=== PATIENT | male | born 1995 | race Hispanic/Latino ===

== ENCOUNTER 2017-10-21 16:10 | Inpatient (IN) | payer OTHER ==
[2017-10-21] MEDS ORDERED: ceFAZolin IV 1 gm in Dextrose 1 GM/50 ML BAG IVPB STA (17:25)
[2017-10-21] MEDS ORDERED: ceFAZolin IV 1 gm in Dextrose 1 GM/50 ML BAG IVPB ONE (17:32)
--- NOTE | 2017-10-21 17:58 | ED PDOC ---
HPI: Skin/Bite Injury Time Seen by Provider: 10/21/17 16:40 Chief Complaint (Nursing): Abnormal Skin Integrity Chief Complaint (Provider): Abscess to buttocks History Per: Family (Mother) History/Exam Limitations: no limitations Onset/Duration Of Symptoms: Days (x 2) Current Symptoms Are (Timing): Still Present Additional Complaint(s): Gerardo Quezada is a 22-year-old male with a developmental delay who was sent to the ED by Dr. Eagle for evaluation of an abscess to the buttocks. Mother noticed it yesterday when she was bathing him. Patient offers no further complaints. No fever or chills per mother. PMD: Dr. Matt Eagle MD Past Medical History Reviewed: Historical Data, Nursing Documentation, Vital Signs Vital Signs: Last Vital Signs Temp 97.8 F 10/24/17 13:00 Pulse 82 10/24/17 13:00 Resp 18 10/24/17 13:00 BP 106/63 10/24/17 13:00 Pulse Ox 97 10/24/17 13:00 - Medical History Other PMH: Developmental delay - Family History Family History: States: Unknown Family Hx - Living Arrangements Living Arrangements: With Family - Home Medications Home Medications: Ambulatory Orders Medication Instructions Recorded Amoxicillin/Clavulanate [Augmentin 1 tab PO Q12 #14 tab 10/23/17 875 MG-125 MG] - Allergies Allergies/Adverse Reactions: Allergies Allergy/AdvReac Type Severity Reaction Status Date / Time morphine Allergy ANAPHYLAXIS Verified 10/21/17 16:26 Review of Systems ROS Statement: Except As Marked, All Systems Reviewed And Found Negative Constitutional: Negative for: Fever, Chills Skin: Positive for: Other (Abscess to buttocks) Physical Exam - Reviewed Nursing Documentation Reviewed: Yes Vital Signs Reviewed: Yes - Physical Exam Appears: Positive for: Non-toxic, No Acute Distress Head Exam: Positive for: ATRAUMATIC, NORMAL INSPECTION, NORMOCEPHALIC Skin: Positive for: Warm (w/ a 4 x 2cm pilonidal abscess with surrounding induration), Dry Eye Exam: Positive for: Normal appearance, EOMI, PERRL Neck: Positive for: Normal, Painless ROM Neurologic/Psych: Positive for: Alert, Oriented - Laboratory Results Result Diagrams: 10/23/17 12:37 10/23/17 12:37 - ECG O2 Sat by Pulse Oximetry: 99 (RA) Pulse Ox Interpretation: Normal Medical Decision Making Medical Decision Making: Temp taken in the ED is 103 upon arrival. Time: 17:21 Initial Impression: Pilonidal abscess Initial Plan: * VBG * CMP * CBC w/ differential * PTT * Prothrombin time * Blood culture * Tylenol 650 mg PO * Ancef IV 1 gm Duplex * ED Nitrous Oxide ordered for procedure * Tdap given IM 18:15 Case discussed with residential worker. Labs reviewed, Lactate is 2.3. 19:57 Patient will be admitted inpatient to Telemetry for pilonidal abscess and sepsis , under the service of Dr. Eagle. Scribe Attestation: Documented by Radha Bass, acting as a scribe for Sissy Ames MD Provider Scribe Attestation: All medical record entries made by the Scribe were at my direction and personally dictated by me. I have reviewed the chart and agree that the record accurately reflects my personal performance of the history, physical exam, medical decision making, and the department course for this patient. I have also personally directed, reviewed, and agree with the discharge instructions and disposition. Disposition - Clinical Impression Clinical Impression: Pilonidal abscess, Sepsis - Patient ED Disposition Is Patient to be Admitted: Yes - Disposition Disposition Time: 19:57 Condition: STABLE - Pt Status Changed To: Hospital Disposition Of: Inpatient - Admit Certification Admit to Inpatient:: After my assessment, the patient will require hospitalization for at least two midnights. This is because of the severity of symptoms shown, intensity of services needed, and/or the medical risk in this patient being treated as an outpatient.
--- NOTE | 2017-10-21 18:50 | CP.PCM.CON ---
History of Present Illness - History of Present Illness History of Present Illness: General Surgery: Dr Platt Pt is a 22M with history of mental retardation and [employer] WORK[employer] shunt. Pt is co- dependent upon his family, and though he can answer yes/no to questioning he is not oriented and does not comprehend/process the current situation or his surroundings. Pt sent in by [facility] because he has inflammation/pain along his sacrum x 3 days. Pt has also been having fevers at home. He has never had any abscess or pilonidal cyst before. Mother denies any nausea or vomiting, and claims pt has been having normal bowel movements. Pt's mental status renders him uncooperative. He barely allowed me to examine the wound, which is now draining purulent foul smelling drainage. Pt was verbally very distressed after minimal examination, and became physically combative when a more thorough examination was attempted. Family attempted to assist me with minimal restraint, and more fluid was expressed, but the situation became dangerous for all parties involved, so no further I&D was attempted at bedside. Review of Systems - Review of Systems All systems: reviewed and no additional remarkable complaints except (as per hpi ) Meds Allergies/Adverse Reactions: Allergies Allergy/AdvReac Type Severity Reaction Status Date / Time morphine Allergy ANAPHYLAXIS Verified 10/21/17 16:26 Physical Exam - Constitutional Appears: No Acute Distress, Confused - Head Exam Head Exam: NORMAL INSPECTION - Eye Exam Eye Exam: Normal appearance - ENT Exam ENT Exam: Mucous Membranes Moist - Respiratory Exam Respiratory Exam: absent: Accessory Muscle Use, Respiratory Distress - Cardiovascular Exam Cardiovascular Exam: Tachycardia - GI/Abdominal Exam GI & Abdominal Exam: Soft. absent: Tenderness - Rectal Exam Additional comments: 3x5 area of erythema and induration along sacrum, foul-smelling purulent material drainage at bedside - Neurological Exam Neurological exam: Alert, Oriented x3 - Psychiatric Exam Psychiatric exam: Normal Affect, Normal Mood - Skin Skin Exam: Normal Color, Warm Results - Vital Signs Recent Vital Signs: Last Vital Signs Temp 97.4 F L 10/21/17 16:27 Pulse 135 H 10/21/17 16:27 Resp BP 154/90 H 10/21/17 16:27 Pulse Ox 99 10/21/17 18:16 Assessment & Plan - Assessment and Plan (Free Text) Assessment: 22M with infected pilonidal cyst Plan: abscess is draining on it's own pt's mental status makes further bedside I&D an unlikely possiblity cont abx - IV likely not necessary and since is draining on it's own pt can be D /C with PO abx at discretion of primary cont warm compresses f/u in clinic with Dr Platt d/w Dr Giulia Kumar, PGY3
[2017-10-21 19:18] LABS: VENOUS BLOOD GAS BASE EXCESS 2.8 mmol/L (0.0-2.0); VENOUS BLOOD GAS PCO2 40 mmHg (40-60); VENOUS BLOOD GAS PO2 48 mm/Hg (30-55); VENOUS BLOOD PH 7.44 (7.32-7.43)
[2017-10-21 19:29] LABS: BASO # 0.1 K/uL (0.0-0.2); BASO % 0.7 % (0.0-2.0); HEMOGLOBIN 14.9 g/dL (12.0-18.0); LYMPH # 2.4 K/uL (1.0-4.3); LYMPH % 13.6 % (20.0-40.0); MEAN CELL VOLUME 94.3 fl (80.0-94.0); MEAN CORPUSCULAR HEMOGLOBIN 31.3 pg (27.0-31.0); MEAN CORPUSCULAR HGB CONC 33.2 g/dL (33.0-37.0); MEAN PLATELET VOLUME 7.8 fl (7.2-11.7); MONO # 1.6 K/uL (0.0-0.8); MONO % 9.1 % (0.0-10.0); NEUT # 13.4 K/uL (1.8-7.0); NEUT % 76.6 % (50.0-75.0); RBC 4.77 Mil/uL (4.40-5.90); RED CELL DISTRIBUTION WIDTH 12.3 % (11.5-14.5); WHITE BLOOD COUNT 17.5 K/uL (4.8-10.8)
[2017-10-21 19:39] LABS: INR 1.3 (0.9-1.2); PROTHROMBIN TIME 14.7 Seconds (9.8-13.1)
[2017-10-21 19:48] LABS: ALB/GLOB RATIO 1.5 (1.0-2.1); ALBUMIN 4.8 g/dL (3.5-5.0); ALT/SGPT 58 U/L (21-72); AST/SGOT 30 U/L (17-59); BLOOD UREA NITROGEN 10 mg/dl (9-20); CALCIUM 9.5 mg/dL (8.4-10.2); GFR AFRICAN-AMERICAN > 60; GFR NON-AFRICAN AMERICAN > 60
[2017-10-21] MEDS ORDERED: Sodium Chloride 0.9% 1,000 ML IV STA (19:57)
--- NOTE | 2017-10-22 08:30 | CP.PCM.PN ---
Subjective - Date & Time of Evaluation Date of Evaluation: 10/22/17 Time of Evaluation: 07:00 - Subjective Subjective: GENERAL SURGERY PROGRESS NOTE FOR DR. LOPEZ Patient seen and examined at bedside. Mother at bedside. Patient reports pain in his sacral area. Per mother, abscess began spontaneously draining yesterday. More seropurulent drainage was able to be expressed today at bedside. Objective - Vital Signs/Intake and Output Vital Signs (last 24 hours): Temp Pulse Resp BP Pulse Ox 99.6 F 94 H 18 99/58 L 98 10/22/17 04:48 10/22/17 04:48 10/22/17 04:48 10/22/17 04:48 10/22/17 04:48 - Medications Medications: Current Medications Acetaminophen (Tylenol 325mg Tab) 650 mg PO Q4 PRN PRN Reason: Fever >100.4 F Last Admin: 10/21/17 23:57 Dose: 650 mg Piperacillin Sod/Tazobactam (Sod 3.375 gm/ Sodium Chloride) 100 mls @ 100 mls/ hr IVPB Q12 DUANE PRN Reason: Protocol Ketorolac Tromethamine (Toradol) 30 mg IVP Q6 PRN PRN Reason: Pain, moderate (4-7) - Labs Labs: 10/21/17 19:05 10/21/17 19:05 PT 14.7 Seconds (9.8-13.1) H 10/21/17 19:05 INR 1.3 (0.9-1.2) H 10/21/17 19:05 APTT 35.0 Seconds (25.6-37.1) 10/21/17 19:05 - Constitutional Appears: Non-toxic, No Acute Distress - Head Exam Head Exam: ATRAUMATIC - Eye Exam Eye Exam: EOMI - Respiratory Exam Respiratory Exam: NORMAL BREATHING PATTERN. absent: Respiratory Distress - Cardiovascular Exam Cardiovascular Exam: +S1, +S2 - Neurological Exam Neurological Exam: Alert, Awake - Psychiatric Exam Psychiatric exam: Anxious - Skin Additional comments: Small superior and inferior opening about 0.5cm with purulent drainage from inferior one. 1cm area of fluctuance noted with surrounding induration Assessment and Plan - Assessment and Plan (Free Text) Assessment: 22yo M with MR s/p STATISTICAL ANALYST shunt with pilonidal abscess - Abscess began spontaneously draining on its own yesterday - More seropurulent drainage was able to be expressed at bedside this morning - Continue Abx - Will FU wound cx - Continue warm compresses, discussed plan with mother - Discussed plan with Dr. Giulia Tellez PGY-3
[2017-10-22] MEDS: Piperacillin/Tazobact 3.375 GM in Sodium Chloride 0.9% 100 ML IVPB SCH ×2 (10:00→21:08)
--- NOTE | 2017-10-23 07:36 | HP ---
HISTORY OF PRESENT ILLNESS: This is a 22-year-old white male with history of mental retardation, status post DEEP FAT [employer] FRY shunt, presented to my office on the day of admission with symptoms of fever, severe tenderness in the lower back and pain. The patient was evaluated and found to have pilonidal cyst. The patient was sent to emergency room where he had blood work after sedation. The patient woke up quickly and he was admitted to medical floor. FAMILY HISTORY: Not known. SOCIAL HISTORY: Not smoking. No EtOH or substance abuse. MEDICATIONS: None. REVIEW OF SYSTEMS: No review of systems was obtainable from the patient. PHYSICAL EXAMINATION: GENERAL: The patient is in bed, comfortable, not in any cardiopulmonary distress at the time of this examination. VITAL SIGNS: Blood pressure 112/74, temperature 99.9, respiratory rate 14, and pulse 110. HEENT: Pupils equal, reactive to light. Normal-appearing mucosa of the conjunctivae, oropharynx, and nasal membrane mucosa. NECK: Supple. No JVD. No carotid bruit. No lymph node. No thyromegaly. CHEST/LUNGS: Bilateral symmetrical expansion. Good air exchange. No rales, no rhonchi. CARDIOVASCULAR SYSTEM: PMI not localized. S1, S2. No additional sounds. ABDOMEN: Normoactive bowel sounds. No tenderness. No organomegaly. No masses. EXTREMITIES: No cyanosis, no clubbing, no edema. SENIOR OFFICER: Alert, awake, oriented x1. No neurological deficit could be appreciated. IMPRESSION: 1. Pilonidal abscess. 2. History of mental retardation. 3. Status post ventriculoperitoneal shunt placement. PLAN: Continue current IV antibiotics. Discussed with Dr. Platt. The patient will go for I and D in the morning. Matt Eagle MD
[2017-10-23] MEDS: Piperacillin/Tazobact 3.375 GM in Sodium Chloride 0.9% 100 ML IVPB SCH ×2 (09:45→21:00)
[2017-10-23] MEDS ORDERED: Lidocaine 2% Inj (20ml) IJ ONE (11:14)
[2017-10-23] MEDS ORDERED: Bupivacaine HCl 0.25% PF (30 ml) Inj IJ ONE (11:14)
[2017-10-23] MEDS ORDERED: Propofol 10 mg/ml Inj (20 ML) ONE (11:53)
[2017-10-23] MEDS ORDERED: Midazolam 2 MG/2 ML VIAL ONE (11:53)
--- NOTE | 2017-10-23 11:55 | PQF GENQUE ---
Dr. Eagle, ER documented the following information with no mention of this diagnosis in your documentation. Please indicate in your next progress note your agreement with the ER MD or provide clarification that this diagnosis is not a current condition. Diagnosis: Sepsis Documented by: ER MD H and P: Impression.:1. Pilonidal abscess. 2. History of mental retardation. 3. Status post ventriculoperitoneal shunt placement. Continue current IV antibiotics. Discussed with Dr. Platt. The patient will go for I and D in the morning Temp: 97.4->101.7->103; 10/21 Temp max:103 and 10/22 Temp max :100.4 Pulse: 135->132->128-.129 10/22: B/P: 99/58->93/54->101/59 Blood culture: x 2 no growth after 24 hrs. This form is a permanent part of the medical record Clarification of your documentation is requested to better reflect the severity of illness and intensity of treatment of your patient. Indicators present [] Specify: [] [] Specify: [] [] Specify: [] [] Specify: [] Location in the medical record that reflects the above clinical findings: [] Treatment Provided: [] PHYSICIAN'S RESPONSE Based on your medical judgment of the clinical indicators outlined above please clarify the following: [] Practitioner response [] If unable to determine, please check the box, sign and date. Present On Admission (POA) Indicator: [] Present at the time of admission [] Not present at the time of admission [] Clinically Undetermined In responding to this query, please exercise your independent professional judgment. The fact that a question is asked does not imply that any particular answer is desired or expected. Thank you for your clarification on this documentation. If you have any questions please call. * Thank you, Jodie Dean RN ext. #[phone] MTDD
[2017-10-23] MEDS ORDERED: Sodium Chloride 0.9% 1,000 ML IV ONE (11:57)
[2017-10-23] MEDS ORDERED: Bupivacaine HCl/Epi 0.5% 1:20000 30 ML SOL IJ ONE (12:13)
[2017-10-23] MEDS ORDERED: Lidocaine 2% PF (10 ml) Amp ONE (12:13)
--- NOTE | 2017-10-23 12:40 | PCM.SURG1 ---
Surgeon's Initial Post Op Note - Surgeon's Notes Surgeon: Dr. Platt Monogram Machine Operator: Dr. Tellez PGY-3 Type of Anesthesia: IV Sedation, Local Pre-Operative Diagnosis: Pilonidal abscess Operative Findings: Pilonidal abscess Post-Operative Diagnosis: Pilonidal abscess Operation Performed: Pilonidal cyst excision and drainage of abscess Specimen/Specimens Removed: pilonidal cyst Estimated Blood Loss: EBL {In ML}: 20 Blood Products Given: N/A Drains Used: No Drains Post-Op Condition: Good Date of Surgery/Procedure: 10/23/17 Time of Surgery/Procedure: 12:00
[2017-10-23 12:56] LABS: BASO # 0.1 K/uL (0.0-0.2); BASO % 0.7 % (0.0-2.0); EOS # 0.1 K/uL (0.0-0.7); EOS % 0.7 % (0.0-4.0); HEMOGLOBIN 14.5 g/dL (12.0-18.0); LYMPH # 1.8 K/uL (1.0-4.3); LYMPH % 19.1 % (20.0-40.0); MEAN CELL VOLUME 93.4 fl (80.0-94.0); MEAN CORPUSCULAR HEMOGLOBIN 31.6 pg (27.0-31.0); MEAN CORPUSCULAR HGB CONC 33.8 g/dL (33.0-37.0); MEAN PLATELET VOLUME 7.8 fl (7.2-11.7); MONO # 0.6 K/uL (0.0-0.8); MONO % 6.1 % (0.0-10.0); NEUT # 6.9 K/uL (1.8-7.0); NEUT % 73.4 % (50.0-75.0); RBC 4.59 Mil/uL (4.40-5.90); RED CELL DISTRIBUTION WIDTH 12.3 % (11.5-14.5); WHITE BLOOD COUNT 9.4 K/uL (4.8-10.8)
[2017-10-23 12:59] LABS: BLOOD UREA NITROGEN 10 mg/dl (9-20); CALCIUM 9.1 mg/dL (8.4-10.2); GFR AFRICAN-AMERICAN > 60; GFR NON-AFRICAN AMERICAN > 60
[2017-10-23] MEDS: Lactated Ringer's 1,000 ML IV SCH (14:30)
[2017-10-24] MEDS: Lactated Ringer's 1,000 ML IV SCH (02:36)
--- NOTE | 2017-10-24 03:45 | PN ---
DATE: 10/23/2017 SUBJECTIVE: The patient is seen today, 10/23/2017. He is status post I&D of pilonidal abscess. PHYSICAL EXAMINATION: VITAL SIGNS: Blood pressure is 106/66, temperature 99.1, respiratory rate 18, and pulse 90. HEENT: Pupils are equal and reactive to light. Normal appearing mucosa of the conjunctiva, oropharyngeal and nasal membrane mucosa. NECK: Supple. No JVD. No carotid bruit. No lymph node. No thyromegaly. CHEST AND LUNGS: Bilateral symmetrical expansion. Good air exchange. No rales, no rhonchi. CARDIOVASCULAR SYSTEM: PMI not localized. S1 and S2. No additional sounds. ABDOMEN: Normoactive bowel sounds. No tenderness. No organomegaly. No masses. EXTREMITIES: No cyanosis, no clubbing, no edema. CENTRAL NERVOUS SYSTEM: The patient is awake, but he has mental retardation and he is disoriented to time and place and person. ASSESSMENT: Pilonidal abscess status post incision and drainage, cellulitis. PLAN: Continue current IV antibiotics and follow surgical recommendations. Matt Eagle MD
--- NOTE | 2017-10-24 09:41 | CP.PCM.PN ---
Subjective - Date & Time of Evaluation Date of Evaluation: 10/24/17 Time of Evaluation: 06:40 - Subjective Subjective: General Surgery Dr. Platt Pt S&E @bedside. NAEO. Per mom, pt had no N/V, F/C overnight. pain controlled. tolerated regular diet. Objective - Vital Signs/Intake and Output Vital Signs (last 24 hours): Temp Pulse Resp BP Pulse Ox 98.7 F 80 20 100/70 97 10/24/17 08:00 10/24/17 08:00 10/24/17 08:00 10/24/17 08:00 10/24/17 08:00 - Medications Medications: Current Medications Acetaminophen (Tylenol 325mg Tab) 650 mg PO Q4 PRN PRN Reason: Fever >100.4 F Last Admin: 10/22/17 19:01 Dose: 650 mg Piperacillin Sod/Tazobactam (Sod 3.375 gm/ Sodium Chloride) 100 mls @ 100 mls/ hr IVPB Q12 DUANE PRN Reason: Protocol Last Admin: 10/23/17 21:00 Dose: 100 mls/hr Lactated Ringer's (Lactated Ringer's) 1,000 mls @ 125 mls/hr IV .Q8H DUANE Last Admin: 10/24/17 02:36 Dose: 125 mls/hr Ketorolac Tromethamine (Toradol) 30 mg IVP Q6 PRN PRN Reason: Pain, moderate (4-7) Last Admin: 10/24/17 05:45 Dose: 30 mg Ondansetron HCl (Zofran Inj) 4 mg IVP Q4 PRN PRN Reason: Nausea/Vomiting - Labs Labs: 10/23/17 12:37 10/23/17 12:37 PT 14.7 Seconds (9.8-13.1) H 10/21/17 19:05 INR 1.3 (0.9-1.2) H 10/21/17 19:05 APTT 35.0 Seconds (25.6-37.1) 10/21/17 19:05 - Constitutional Appears: Non-toxic, No Acute Distress - Head Exam Head Exam: NORMAL INSPECTION - Eye Exam Eye Exam: Normal appearance - ENT Exam ENT Exam: Mucous Membranes Moist - Respiratory Exam Respiratory Exam: NORMAL BREATHING PATTERN. absent: Accessory Muscle Use, Respiratory Distress - Cardiovascular Exam Cardiovascular Exam: absent: Bradycardia, Tachycardia - GI/Abdominal Exam GI & Abdominal Exam: Soft. absent: Distended, Tenderness - Rectal Exam Additional comments: no erythema, induration dressing stained - Extremities Exam Extremities Exam: Normal Inspection - Neurological Exam Neurological Exam: Alert, Awake - Psychiatric Exam Psychiatric exam: Normal Affect, Normal Mood - Skin Skin Exam: Dry, Intact, Normal Color, Warm Assessment and Plan - Assessment and Plan (Free Text) Assessment: 22 y/o M w/ Pilonidal cyst POD#1 s/p I&D - packing removed - change dressing PRN (NO TAPE) - Pt cleared for discharge on PO Abx - wound care discussed w/ Mom - Pt may shower; no pools, tubs, baths. - Pt should f/u w/ Dr. Platt in office in 7-10days Pt discussed w/ Dr. Giulia Rand DO PGY2
[2017-10-24] MEDS: Piperacillin/Tazobact 3.375 GM in Sodium Chloride 0.9% 100 ML IVPB SCH (09:56)
[2017-10-24 12:36] VITALS: BP 106/63; PULSE 82; RESP 18; TEMP 97.8
[2017-10-25 11:25] VITALS: O2SAT 99
--- NOTE | 2017-11-13 22:04 | OP ---
PROCEDURE DATE: 10/23/2017 PREOPERATIVE DIAGNOSIS: Perirectal abscess. POSTOPERATIVE DIAGNOSIS: Perirectal abscess. PROCEDURE: Excision of perirectal abscess and incision and drainage. SURGEON: Terrance Platt DO RESIDENT: Arminda Tellez DO TYPE OF ANESTHESIA: General anesthesia. ESTIMATED BLOOD LOSS: Minimal. CONDITION OF THE PATIENT: Stable. COMPLICATIONS: None. DRAINS: None. SPECIMEN: Intraoperative cultures and portion of skin. DESCRIPTION OF PROCEDURE: The patient was brought to the operating room, place supine on the operating table. Given his mental retardation, the decision was made to perform this under general anesthesia. After deep general anesthesia was achieved, the patient was placed on the lateral side and the small of the back and buttocks area was prepped and draped in usual sterile fashion. An elliptical incision was made of the infected tissue with unroofing of a track going cephalad from the pilonidal abscess. Hemostasis was verified with Bovie. The area was copiously irrigated and we then proceeded to pack the wound and to place a dry dressing. The patient tolerated the procedure well. No intraoperative complications. Transferred to the PACU in satisfactory condition. Terrance Platt DO
== END 2017-10-24 15:00 | disposition home or self-care (01) | DRG 898 ==
LOC: H.ER 16:10 → H.ERHOLD 19:57 → H.TEL 22:29
PROVIDERS: ADMIT Internal Medicine; ATTEND Internal Medicine
PROC: 3E0234Z Introduction of Serum, Toxoid and Vaccine into Muscle, Percutaneous Approach (ICD-10-PCS; 2017-10-21)
PROC: 0HB8XZZ Excision of Buttock Skin, External Approach (ICD-10-PCS; 2017-10-23)
PROC: 0H98XZZ Drainage of Buttock Skin, External Approach (ICD-10-PCS; principal; 2017-10-23 11:00)
DX: A41.9 Sepsis, unspecified organism (principal); F79 Unspecified intellectual disabilities; L05.01 Pilonidal cyst with abscess; R62.50 Unspecified lack of expected normal physiological development in childhood; Z98.2 Presence of cerebrospinal fluid drainage device; Z23 Encounter for immunization